=== PATIENT | male | born 1940 | race Caucasian/White ===

== ENCOUNTER → 2017-05-19 | Day surgery (SDC) | payer MEDICARE ==
[~2017-05-19] MED LIST: AMLO10TA2 PO; ATEN50TA PO; ATOR40TA59 PO; BACITRACIN 50,000 UNIT VIAL. ONE; BUPIVACAINE MPF 0.5% 30 ML VIAL. ONE; CHOL500016 PO; CLIN300C8 PO; CLINDAMYCIN 600MG PREMIX 50 ML IV ONE; CLINDAMYCIN PREMIX 600 MG/50 ML BAG IV ONE; CYAN10002 IM; DEXAMETHASONE SOD PHOS 4 MG/ML VIAL ONE; DICL100G18 TP; DICL75TA PO; DULO60CA6 PO; ETOD400T PO; FAMOTIDINE 20 MG/2 ML VIAL ONE; IV RINGERS SOLUTION,LACTATED 1,000 ML IV ONE; IV RINGERS SOLUTION,LACTATED 1,000 ML IV SCH; LIDOCAINE 1% PF 2 ML VIAL. ID PRN; LIDOCAINE 1% PF 30 ML VIAL. ONE; LISI40TA PO; MELO15TA23 PO; METF10002 PO; MIDAZOLAM HCL PF 2 MG/2 ML VIAL. ONE; OMEP20TA8 PO; ONDANSETRON PF 4 MG/2 ML VIAL. IV PRN; ONDANSETRON PF 4 MG/2 ML VIAL. ONE; OXCA300T PO; PROCHLORPERAZINE 10 MG/2 ML VIAL. IV PRN; PROPOFOL 10,000 MCG/ML (20ML) VIAL IV ONE; PROPOFOL 20 ML IV ONE; TAMS0.4C2 PO; TIMO10DR5 EACHEYE
[2017-05-19 10:06] LABS: BASO # 0.1 x10^3/uL (0.0-0.2); BASO % 1 % (0-3); EOS # 0.1 x10^3/uL (0.0-0.7); EOS % 1 % (0-3); HEMATOCRIT 30.7 % (39.0-53.0); HEMOGLOBIN 9.9 g/dL (13.0-17.5); LYMPH # 1.7 x10^3/uL (1.0-4.8); LYMPH % 29 % (24-48); MEAN CORPUSCULAR HEMOGLOBIN 24 pg (25-35); MEAN CORPUSCULAR HGB CONC 32 g/dL (31-37); MEAN CORPUSCULAR VOLUME 76 fL (79-100); MONO # 0.6 x10^3/uL (0.0-1.1); MONO % 10 % (0-9); NEUT # 3.5 x10^3uL (1.8-7.7); NEUT % 58 % (31-73); PLATELET COUNT 288 x10^3/uL (140-400); RED BLOOD COUNT 4.04 x10^6/uL (4.30-5.70); RED CELL DISTRIBUTION WIDTH 15.9 % (11.5-14.5)
[2017-05-19 13:30] VITALS: BP 180/79
== END | disposition home or self-care (01) ==
LOC: SURG 08:59
PROVIDERS: ATTEND Anesthesiology Pain Medicine
DX: M54.16 Radiculopathy, lumbar region (principal); I10 Essential (primary) hypertension; E11.9 Type 2 diabetes mellitus without complications; M19.90 Unspecified osteoarthritis, unspecified site; K21.9 Gastro-esophageal reflux disease without esophagitis; F17.210 Nicotine dependence, cigarettes, uncomplicated; Z88.0 Allergy status to penicillin; Z86.73 Personal history of transient ischemic attack (TIA), and cerebral infarction without residual deficits; Z79.899 Other long term (current) drug therapy
CPT/HCPCS: 36415; 62287; 82947; 85025; 85610; J1100; J2001; J2250; J2405; J2704; J3010; J3490; J7120; S0028